=== PATIENT | female | born 1950 | race Caucasian/White ===

== ENCOUNTER → 2016-12-23 | Outpatient (CLI) | payer MEDICARE, OTHER ==
[~2016-12-23] MED LIST: ACIPHEX20 MG PO; ALB/IPRATROPIUM/1 E1 INH; ALBUTEROL 0.5ML NEB; ALDACTONE PO; ALDACTONE25 MG PO; ALLEGRA-D1 TAB.SR1 PO; ALPRAZOLAM PO; AMBIEN CR PO; AMBIEN PO; AMBIEN10 MG PO; AMITIZA; AMITIZA8 MCG PO; AMITRIPTYLINE H25 MG PO; AMITRYPTYLINE PO; ASPIRIN81 M1 PO; ASTELIN137 MCG IH; ASTELIN137 MCG INH; ATARAX PO; ATENOLOL25 MG PO; AZELASTINE137 MCG/0.; BACLOFEN10 MG PO; BALANCED B COM1 EACH; BENEFIBER DRIN PO; BENEFIBER98 GM PO; BUSPAR PO; BUSPAR15 M1 DOB; BUSPAR15 M1 PO; BUSPAR15 MG PO; BUSPAR5 MG PO; CALCIUM + D 6001 TA1 PO; CELEBREX PO; CENTRUM SILVER PO; CERTAGEN PO; CHLOROTHIAZIDE500 MG PO; CITRUCEL PO; CLINDAMYCIN HC300 MG PO; CLOPIDOGREL75 MG PO; COMBIVENT U/D3 M1 NEB; COUMADIN1 MG PO; DIAZEPAM10 MG PO; DOXYCYCLINE HY100 M1 PO; DOXYCYCLINE HY100 M3 PO; FAST RELIEF LAX10 MG RC; FENTANYL1 PATCH .7 TOP; FERROUS SULFATE PO; FLAGYL PO; FLEXERIL10 MG PO; FLONASE 0.05% N16 G1; FLONASE 0.05% N16 GM; FLONASE ALLERG9.9 ML; FLONASE16 GM; FLUOXETINE HCL20 M1 PO; FOSAMAX PO; FUROSEMIDE40 MG PO; GLUCERNA237 ML PO; GLUCOPHAGE XR500 MG PO; HYDROXYZINE HCL25 M1 DOB; HYDROXYZINE HCL25 M1 PO; IBUPROFEN800 MG PO; IMITREX; IMITREX4 MG/0.5 M SQ; K-DUR20 ME1 DOB; K-DUR20 ME1 PO; K-DUR20 ME2 DOB; K-DUR20 ME2 PO; KCL PO; LASIX PO; LASIX20 MG PO; LEVO-T200 MCG PO; LEVOTHYROXINE150 MCG PO; LIDODERM30 EA TOP; LIPITOR40 MG PO; LMX TP; LOMOTIL TABLET1 TAB PO; LOMOTIL WHITE2.5 M1 PO; LOMOTIL WHITE2.5 MG PO; LOPROX TOP; LORTAB 7.5-5001 TAB PO; LYRICA PO; LYRICA100 MG PO; LYRICA75 MG PO; MACROBID100 MG DOB; MAG-OXIDE400 MG PO; MAGNESIUM400 MG PO; MAXZIDE 75-501 EACH PO; MAXZIDE 75/50 T1 TA1 PO; MELOXICAM15 MG PO; METALOZONE PO; METANX TABLET1 TAB PO; METHOTREXATE2.5 MG PO; MICRO-K PO; MILK OF MAGNESIA PO; MIRALAX17 GM DOB; MIRALAX17 GM PO; MIRALAX255 GM PO; MOBIC PO; MOBIC15 MG PO; MODAFINIL200 MG PO; MORGIDOX100 MG PO; MORPHINE IR PO; MORPHINE SULFAT30 M3 PO; MOTRIN400 M1 PO; MS CONTIN PO; MS CONTIN15 MG PO; MS CONTIN30 M1 PO; MS CONTIN30 MG PO; MSIR PO; MSIR15 M1 PO; MSIR15 MG PO; NAPROSYN500 MG PO; NIFEREX-150 FO150 MG PO; NORCO 5/325 TAB1 TAB PO; NORVASC PO; NYSTATIN15 GM OINT EXT; NYSTATIN30 GM TD; OGEN; OGEN PO; OXYCODONE-ACET1 EAC1 PO; OYSTER CALCIUM500 MG PO; PLAQUENIL200 MG PO; PLAVIX PO; PRESERVISION SO1 CAP PO; PROBIOTIC1 EAC1 PO; PROVIGIL PO; PROVIGIL100 MG PO; PROZAC PO; PROZAC10 MG PO; RESTASIS32 EA OP; RESTASIS32 EA OU; ROCEPHIN IV; SARAFEM20 MG PO; SAVELLA1 EACH PO; SAVELLA100 MG PO; SAVELLA50 MG PO; SENEXON-S TABL1 EACH PO; SEROQUEL PO; SEROQUEL XR150 MG PO; SEROQUEL XR200 MG DOB; SEROQUEL XR200 MG PO; SPIRIVA RESPIMAT4 G1; SPIRIVA RESPIMAT4 G1 INH; SPIRIVA18 MCG PO; SPIRONOLACTONE50 MG PO; STAHIST AD TAB1 EACH PO; SURFAK240 MG PO; SYMBICORT 160/4.6 G1 INH; SYMBICORT INH; SYNTHROID PO; SYNTHROID0.2 MG DOB; SYNTHROID0.2 MG PO; SYNTHROID125 PO; SYNTHROID137 MCG PO; TENORMIN25 M1 PO; TENORMIN25 MG PO; TOPAMAX25 MG PO; TORADOL SUBQ; TORADOL30 MG/ML IJ; TREXIMET 85-5001 TAB PO; TRIAMTERENE-HC1 EACH PO; TYLENOL ARTHRITIS; VALIUM10 MG PO; VESICARE PO; VIBRAMYCIN100 M1 PO; VITAL-D RX TABL1 TAB PO; VITAMIN D350000 UNIT PO; VITAMIN D5000 UNIT PO; VITAMIN D50000 UNIT PO; ZELNORM PO; ZOCOR PO; ZOFRAN PO; ZOFRAN8 MG PO; ZOFRANODT PO; ZOFRANODT SL; ZOLOFT100 MG PO; [UNRECOGNIZED DRUG - OTHER] PO; [UNRECOGNIZED DRUG - OTHER] PO; [UNRECOGNIZED DRUG - OTHER] PO; [UNRECOGNIZED DRUG - REMARK]
--- NOTE | ~2016-12-23 | MY11 ---
[facility] A Service of [facility] RADIOLOGY TEXT RESULTS PATIENT: KYM RUST LOCATION: [facility] : 51 UNIT #: [id number] AGE: [address]: Stefanie Stack MD SEX: F ORDER DR: [id number] [facility] [address] [place] [address]. [place], [place] [address] [id number] O MR#: [id number] Acc #: [id number] NAME: KYM RUST : 1950 SEX: F STUDY DATE/TIME: 12/23/2016 11:29 UNIT: [facility] ROOM: STUDY DESCRIPTION: MY Mammogram Screening Dig Garry Attending Physician: Stefanie Stack M.D. Ordering Physician: Stefanie Stack M.D. Primary Care Physician: Stefanie Stack M.D. MEDICAL IMAGING REPORT This report is preliminary unless electronic signature is present EXAM Screening mammogram, 12/23 INDICATION 66-year-old with no personal or family history of breast cancer. No current complaints. FINDINGS Routine digital screening views of both breasts were obtained. Study is reviewed with an FDA-approved CAD device. Comparison is made with 08/19/2011, 07/17/2009. Breast parenchyma shows scattered fibroglandular densities. No new masses or suspicious microcalcifications are seen. Benign calcifications are present in the left breast. IMPRESSION Benign mammogram. Routine screen in 1 year is recommended. Patients over the age of 40 are entered into a reminder system with target due date for the next mammogram. A result letter will also be sent to the patient. BIRADS: 2 Benign Finding Dictated by... Gurinder Klein Jr., M.D. THIS IS AN ELECTRONICALLY VERIFIED REPORT Gurinder Klein Jr., M.D. at 12/24/2016 10:01 AM WILMER/gemma [facility] A Service of [facility] RADIOLOGY TEXT RESULTS PATIENT: KYM RUST LOCATION: [facility] : 51 UNIT #: [id number] AGE: [address]: Stefanie Stack MD SEX: F ORDER DR: TD: 12/23/2016 16:21 JOB #: [id number] MEDICAL IMAGING REPORT Page 1 of 1 COPY
--- NOTE | ~2016-12-23 | BD1 ---
[facility] A Service of [facility] RADIOLOGY TEXT RESULTS PATIENT: KYM RUST LOCATION: [facility] : 51 UNIT #: [id number] AGE: [address]: Stefanie Stack MD SEX: F ORDER DR: [id number] [facility] [address] [place], [place] [address] [id number] O MR#: [id number] Acc #: [id number] NAME: KYM RUST : 1950 SEX: F STUDY DATE/TIME: 12/23/2016 11:11 UNIT: [facility] ROOM: STUDY DESCRIPTION: BD Dexa Bone Dens 1+ Site Attending Physician: Stefanie Stack M.D. Ordering Physician: Stefanie Stack M.D. Primary Care Physician: Stefanie Stack M.D. MEDICAL IMAGING REPORT This report is preliminary unless electronic signature is present EXAM DXA scan 12/23/2016 HISTORY Status post menopause with no hormone replacement therapy. Osteopenia. Hysterectomy at age 55 with removal of both ovaries. Kidney disease and arthritis. Thyroid medication Synthroid use for 10 years. Hypertension with blood pressure medication. Family history of osteoporosis in mother and aunt. Smoking history. FINDINGS Bone mineral density in the left femoral neck was 0.703 g/cm2 which is 1.3 standard deviations below the mean when compared to young adult reference population which is characteristic of osteopenia. This is 0.2 standard deviations above the mean when compared to the age-matched population. Bone mineral density in the left forearm was 0.422 g/cm2 which is 2.8 standard deviations below the mean when compared to the young adult reference population which is characteristic of osteoporosis. This is 1 standard deviation below the mean when compared to the age-matched population. IMPRESSION Bone mineral density in the left hip characteristic of osteopenia and within the left forearm characteristic of osteoporosis. Dictated by... Leighton Guzman M.D. THIS IS AN ELECTRONICALLY VERIFIED REPORT Leighton Guzman M.D. at 12/25/2016 4:42 PM SARAH/melanie TD: 12/24/2016 16:36 [facility] A Service of [facility] RADIOLOGY TEXT RESULTS PATIENT: KYM RUST LOCATION: [facility] : 51 UNIT #: [id number] AGE: [address]: Stefanie Stack MD SEX: F ORDER DR: JOB #: [id number] MEDICAL IMAGING REPORT Page 1 of 1 COPY
== END | disposition home or self-care (01) ==
LOC: CWCC 10:11
DX: Z12.31 Encounter for screening mammogram for malignant neoplasm of breast (principal); Z13.820 Encounter for screening for osteoporosis; Z78.0 Asymptomatic menopausal state
CPT/HCPCS: 77080; G0202

== ENCOUNTER → 2017-01-08 | Day surgery (SDC) | payer MEDICARE, OTHER ==
--- NOTE | ~2017-01-08 | OR ---
Unit #: [id number] #: [id number] Patient: KYM RUST [id number] [facility]. [place], [place] [address] [id number] O MR#: [id number] NAME: KYM RUST ROOM: Date of Procedure: 01/08/2017 Admission Date: 01/08/2017 Surgeon: Bonifacio Urban M.D. : 1950 Attending Physician: Bonifacio Urban M.D. Referring Physician: Bonifacio Urban M.D. Primary Care Physician: Stefanie Stack M.D. OPERATIVE REPORT PREOPERATIVE DIAGNOSES The patient has history of achalasia cardia and has come for elective upper endoscopy. She had Botox injection last year that lasted about 7 months in terms of symptom relief and she got recurrent dysphagia. She is therefore come for elective upper endoscopy and Botox injection. In addition, the patient needs a screening colonoscopy. PROCEDURES PERFORMED 1. Upper gastrointestinal endoscopy and biopsy. 2. Upper gastrointestinal endoscopy and submucosal injection. 3. Upper gastrointestinal endoscopy and foreign body removal as well as colonoscopy up to cecum. POSTOPERATIVE DIAGNOSES For upper endoscopy: 1. The patient had classic changes of achalasia with megaesophagus. She also had food stuck in the distal esophagus, which was disimpacted before injection of the LES with Botox. 2. Four injections 25 units each of Botox were given in each of the 4 quadrants in the distal esophagus. In addition, the patient had mild prepyloric antral gastritis and biopsy obtained for CLOtest. 3. Rest of examination up to third part of duodenum was normal. For colonoscopy: 1. Completely normal examination up to cecum. The quality of prep was excellent. No diverticula, hemorrhoids, or polyps were seen. RECOMMENDATIONS 1. Repeat colonoscopy in 10 years. 2. The patient will be followed up in the office in 3 months' time to see the efficacy of Botox treatment. SEDATION USED MAC. DESCRIPTION OF PROCEDURE Following detailed explanation of potential risks and complications of an upper endoscopy and a colonoscopy, namely perforation, bleeding, and complications related to sedation, the patient was brought to GI lab and laid in the left lateral decubitus position. Lubricated tip of the Olympus video upper endoscope was passed through the bite block into the proximal esophagus under direct vision. The entire esophageal mucosa was examined, the patient was noted to have food residue, liquid residue above Unit #: [id number] #: [id number] Patient: [place] the solid meat impaction in the distal esophagus. 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 The secretions were suctioned and the meat was disimpacted in the distal esophagus with the scope shaft. The scope was then advanced into the gastric cavity. Mucosa of the fundus, body, and antrum examined. Mild prepyloric antral erythema and erosions noted indicating antral gastritis. Pylorus was intubated with visualization of the normal duodenal bulb and second and third part of the duodenum. Upon withdrawal and retroflexion, incisura, cardia, and greater curve examined and biopsy obtained from the antrum for CLOtest. The scope was then withdrawn in the distal esophagus. Four injections of Botox 25 units each were made in each of the 4 quadrants 1 cm above the gastroesophageal junction. The scope was then withdrawn all the way up to pharynx. No additional findings noted. The examination table was then turned by 180 degrees and the patient positioned for a colonoscopy. A digital rectal examination was performed, which was normal. Lubricated tip of the Olympus video colonoscope was inserted through the anus and advanced under direct vision. The scope was advanced and passed up to sigmoid into descending colon. No diverticula were seen in this area. The scope tip was then navigated all the way up to cecum with visualization of ileocecal valve and the appendiceal orifice. Preparation was excellent with good visualization and photodocumentation was obtained. Last several inches of the terminal ileum also visualized after intubation of the ileocecal valve and appeared normal. Successive segments of the colonic mucosa were examined upon withdrawal and appeared unremarkable. There being no polyps, mass lesions, AVMs, or diverticula. The patient did not have any hemorrhoids at anal verge. The scope was then withdrawn. The patient returned to recovery area. She tolerated the procedure without any postprocedure complications. Dictated by... Rachel Fields/sharmin TD: 01/09/2017 02:29 JOB #: [id number] OPERATIVE REPORT Page 1 of 1 X Bonifacio Urban MD X PROCEDURE OPERATIVE NOTE
--- NOTE | ~2017-01-08 | EKG ---
PATIENT: KYM RUST UNIT #: [id number] Ventricular Rate: 53 BPM Atrial Rate: 53 BPM P-R Interval: 144 ms QRS Duration: 80 ms Q-T Interval: 442 ms QTC Calculation(Bezet): 414 ms P Weaver: 23 degrees Calculated R Weaver: -32 degrees Calculated T Weaver: 5 degrees Diagnosis Line: Sinus bradycardia Diagnosis Line: Left axis deviation Diagnosis Line: Low voltage QRS Diagnosis Line: Abnormal ECG Diagnosis Line: When compared with ECG of 12-FEB-2016 13:16, Diagnosis Line: Vent. rate has decreased BY 41 BPM Diagnosis Line: Nonspecific T wave abnormality now evident in Diagnosis Line: Inferior leads Diagnosis Line: Confirmed by ALEJANDRA MILNER MD ([id number]) on Diagnosis Line: 01/09/2017 6:48:52 AM INTERPRETING : YOBANI
== END | disposition home or self-care (01) ==
LOC: COPS 11:25
DX: Z12.11 Encounter for screening for malignant neoplasm of colon (principal); K22.0 Achalasia of cardia; E03.9 Hypothyroidism, unspecified; J44.9 Chronic obstructive pulmonary disease, unspecified; Z88.8 Allergy status to other drugs, medicaments and biological substances; Z88.1 Allergy status to other antibiotic agents; Z91.048 Other nonmedicinal substance allergy status; K29.70 Gastritis, unspecified, without bleeding; E11.9 Type 2 diabetes mellitus without complications; Z96.641 Presence of right artificial hip joint; Z96.651 Presence of right artificial knee joint
CPT/HCPCS: 43236; 43239; 43247; G0121; 82947; 87077; 93005; J0585; J2270; J2550

== ENCOUNTER → 2017-01-28 | Outpatient (CLI) | payer MEDICARE, OTHER ==
[2017-01-28 15:34] LABS: CALCIUM SERUM 8.9 mg/dL (8.4-10.2); GLOM FILT RATE Estimated 59.1 mL/min (>60)
== END | disposition home or self-care (01) ==
LOC: CSSDAY 01-27 15:00 → CLAB 14:29
PROVIDERS: Family Medicine
DX: M81.0 Age-related osteoporosis without current pathological fracture (principal)
CPT/HCPCS: 36415; 82310; 82565; 96374; J3489

== ENCOUNTER 2017-05-28 13:49 | Emergency (ER) | payer MEDICARE, OTHER ==
[~2017-05-28] VITALS: Ht 182.9 cm; Wt 103.4 kg
--- NOTE | ~2017-05-28 | CR281 ---
[facility] A Service of [facility] RADIOLOGY TEXT RESULTS PATIENT: KYM RUST LOCATION: [facility] : 52 UNIT #: [id number] AGE: [address]: Cassandra Adamson SEX: F ORDER DR: [id number] [facility] [address] [place], [place] [address] [id number] E MR#: [id number] Acc #: [id number] NAME: KYM RUST : 1950 SEX: F STUDY DATE/TIME: 05/28/2017 16:23 UNIT: [facility] ROOM: STUDY DESCRIPTION: CR Wrist Min 3 View Lt Attending Physician: Cassandra Adamson Pa-C Ordering Physician: Ed Terry Downs M.D. Primary Care Physician: Stefanie Stack M.D. MEDICAL IMAGING REPORT This report is preliminary unless electronic signature is present EXAM Left wrist 05/28/2017 INDICATIONS Left wrist pain after falling today going up stairs. COMPARISON None. FINDINGS 3 views of the left wrist were obtained. There has been fusion of the first MCP joint. There is degenerative change of the first carpometacarpal joint also the scaphotrapezial joint. No fractures are visible. IMPRESSION Marked degenerative changes at the scaphotrapezial joint and the first CMC joint. No evidence of acute injury. Dictated by... Oumar Staples M.D. THIS IS AN ELECTRONICALLY VERIFIED REPORT Oumar Staples M.D. at 05/29/2017 9:06 AM JUNE/melanie TD: 05/29/2017 05:19 JOB #: [id number] MEDICAL IMAGING REPORT Page 1 of 1 COPY
--- NOTE | ~2017-05-28 | CT71 ---
[facility] A Service [facility] RADIOLOGY TEXT RESULTS PATIENT: KYM RUST LOCATION: [facility] : 52 UNIT #: [id number] AGE: [address]: Cassandra Adamson SEX: F ORDER DR: [id number] [facility] [address] [place] [address] [place], [place] [address] [id number] E MR#: [id number] Acc #: [id number] NAME: KYM RUST : 1950 SEX: F STUDY DATE/TIME: 05/28/2017 15:21 UNIT: [facility] ROOM: STUDY DESCRIPTION: CT Head Wo Contrast Attending Physician: Cassandra Adamson Pa-C Ordering Physician: Ed Doctor [id number] [facility] Primary Care Physician: Stefanie Stack M.D. MEDICAL IMAGING REPORT This report is preliminary unless electronic signature is present EXAM CT scan of the head without contrast HISTORY Fall yesterday going upstairs with headache since then. COMPARISON 06/11/2015. TECHNIQUE This CT exam was performed with one or more of the following radiation dose reduction techniques: automatic control, adjustment of mA and/or kV according to patient size, and iterative reconstruction. FINDINGS Axial noncontrast images were obtained from the skull base to the vertex. Ventricular size and configuration are normal. There is no evidence of acute infarct or hemorrhage. There are no extra-axial fluid collections. No mass lesion or mass effect is seen. There are no skull fractures. IMPRESSION Normal noncontrast head CT. Dictated by... Oumar Staples M.D. THIS IS AN ELECTRONICALLY VERIFIED REPORT Oumar Satples M.D. at 05/29/2017 9:06 AM FEL/rnr [facility] A Service [facility] RADIOLOGY TEXT RESULTS PATIENT: KYM RUST LOCATION: [place] : 52 UNIT #: [id number] AGE: [address]: Cassandra Adamson SEX: F ORDER DR: TD: 05/29/2017 00:33 JOB #: [id number] MEDICAL IMAGING REPORT Page 1 of 1 COPY
--- NOTE | ~2017-05-28 | CT52 ---
[facility] A Service [facility] RADIOLOGY TEXT RESULTS PATIENT: KYM RUST LOCATION: [place] : 52 UNIT #: [id number] AGE: [address]: Cassandra Adamson SEX: F ORDER DR: [id number] [id number] [facility] [place], [place] [address] [id number] E MR#: [id number] Acc #: [id number] NAME: KYM RUST : 1950 SEX: F STUDY DATE/TIME: 05/28/2017 16:11 UNIT: [facility] ROOM: STUDY DESCRIPTION: CT Cervical Spine Wo Cont Attending Physician: Cassandra Adamson Pa-C Ordering Physician: Deni Downs M.D. Primary Care Physician: Stefanie Stack M.D. MEDICAL IMAGING REPORT This report is preliminary unless electronic signature is present EXAM CT scan of the cervical spine without contrast HISTORY Fell yesterday trying to go upstairs with head injury and neck pain since then. COMPARISON 09/30/2011. TECHNIQUE Axial 2 mm images were obtained through the cervical spine and sagittal and coronal reconstructions were generated. This CT exam was performed with one or more of the following radiation dose reduction techniques: automatic control, adjustment of mA and/or kV according to patient size, and iterative reconstruction. FINDINGS Patient has undergone anterior fusion at C5-6. The alignment is normal. There is disc space narrowing at C6-7. There is no fracture or subluxation. The esophagus is dilated suggesting achalasia. IMPRESSION 1. No evidence of acute injury in the cervical spine. 2. Dilated upper esophagus unchanged from 09/30/2011 suggesting achalasia. Dictated by... Oumar Staples M.D. [facility] A Service [facility] RADIOLOGY TEXT RESULTS PATIENT: KYM RUST LOCATION: [place] : 52 UNIT #: [id number] AGE: [address]: Cassandra Adamson SEX: F ORDER DR: THIS IS AN ELECTRONICALLY VERIFIED REPORT Oumar Staples M.D. at 05/31/2017 3:41 PM JUNE/melanie TD: 05/29/2017 01:07 JOB #: [id number] MEDICAL IMAGING REPORT Page 1 of 1 COPY
--- NOTE | ~2017-05-28 | CR172 ---
[facility] A Service of [facility] RADIOLOGY TEXT RESULTS PATIENT: KYM RUST LOCATION: [facility] : 52 UNIT #: [id number] AGE: [address]: Cassandra Adamson SEX: F ORDER DR: [id number] [facility] [address] [place], [place] [address] [id number] E MR#: [id number] Acc #: [id number] NAME: KYM RUST : 1950 SEX: F STUDY DATE/TIME: 05/28/2017 16:27 UNIT: [facility] ROOM: STUDY DESCRIPTION: CR Knee 3 Views Lt Attending Physician: Cassandra Adamson Pa-C Ordering Physician: Ed Doctor [id number] [facility] Primary Care Physician: Stefanie Stack M.D. MEDICAL IMAGING REPORT This report is preliminary unless electronic signature is present EXAM Left knee HISTORY Left knee pain after fall going upstairs today. FINDINGS AP lateral and sunrise views of the left knee were obtained and compared to 06/11/2015. There is degenerative change with spurring from the patella and degenerative spurring from the medial joint compartment. There is no fracture or effusion visible. IMPRESSION Degenerative changes. No evidence of acute injury. Dictated by... Oumar Staples M.D. THIS IS AN ELECTRONICALLY VERIFIED REPORT Oumar Staples M.D. at 05/29/2017 9:06 AM JUNE/melanie TD: 05/29/2017 05:38 JOB #: [id number] MEDICAL IMAGING REPORT Page 1 of 1 COPY
== END 2017-05-28 17:08 | disposition home or self-care (01) ==
LOC: CED 13:49 → CFTX 13:49
DX: S63.502A Unspecified sprain of left wrist, initial encounter (principal); S83.92XA Sprain of unspecified site of left knee, initial encounter; I11.9 Hypertensive heart disease without heart failure; I51.9 Heart disease, unspecified; Z79.899 Other long term (current) drug therapy; Z88.1 Allergy status to other antibiotic agents; Z91.040 Latex allergy status; Z91.048 Other nonmedicinal substance allergy status; Z86.711 Personal history of pulmonary embolism; W10.9XXA Fall (on) (from) unspecified stairs and steps, initial encounter; Y92.009 Unspecified place in unspecified non-institutional (private) residence as the place of occurrence of the external cause
CPT/HCPCS: 29505; 70450; 72125; 73110; 73562; 99284